=== PATIENT | female | born 1975 | race Caucasian/White ===

== ENCOUNTER 2016-09-20 21:31 | Emergency (ER) | payer MEDICAID ==
[~2016-09-20 21:31] MED LIST: DOCU-30 PO; FURO-93 PO; HYDR-3241 PO; METH-356 PO; OXYC-302 PO; POLY17PO5 PO; POTA10TA5 PO; SULF1TAB24 PO
[2016-09-20] MEDS ORDERED: DIPH,PERTUSS(ACELL),TET VAC/PF 0.5 ML IM-VACC ONE (23:01)
[2016-09-20] MEDS ORDERED: LIDOCAINE 1%, 20ML ONE (23:01)
== END 2016-09-20 23:45 ==
LOC: ED 21:31
DX: S90.852A Superficial foreign body, left foot, initial encounter (principal); X58.XXXA Exposure to other specified factors, initial encounter; Y93.89 Activity, other specified; Y99.8 Other external cause status; Y92.410 Unspecified street and highway as the place of occurrence of the external cause
CPT/HCPCS: 10120

== ENCOUNTER 2016-12-20 23:47 | Emergency (ER) | payer MEDICAID ==
[~2016-12-20] VITALS: Ht 167.6 cm; Wt 79.7 kg
[~2016-12-20 23:47] MED LIST changes: +DOCU-131 PO; -DOCU-30 PO
[2016-12-21] MEDS ORDERED: KETOROLAC 30 MG/1 ML ONE (00:45)
[2016-12-21] MEDS ORDERED: KETOROLAC 30 MG/1 ML IM ONE (01:00)
[2016-12-21 01:09] LABS: HEMATOCRIT 39.1 % (34.6-47.8); HEMOGLOBIN 12.9 g/dL (11.7-16.4); WHITE BLOOD COUNT 9.8 x10^3/uL (3.4-10)
[2016-12-21 01:20] LABS: BLOOD UREA NITROGEN 10 mg/dL (7-18)
[2016-12-21 01:24] LABS: IS PT STATUS REG ER OR PRE ER? YES
[2016-12-21] MEDS ORDERED: ONDANSETRON ODT 4 MG ONE (01:37)
[2016-12-21 01:39] VITALS: BP 124/80
[2016-12-21] MEDS ORDERED: ONDANSETRON ODT 4 MG PO ONE (02:00)
== END 2016-12-21 02:28 | disposition home or self-care (01) ==
LOC: ED 23:59
DX: R07.9 Chest pain, unspecified (principal); F17.200 Nicotine dependence, unspecified, uncomplicated; Z90.49 Acquired absence of other specified parts of digestive tract
CPT/HCPCS: 36415; 71010; 80048; 82040; 84484; 85025; 93005; 96372; 99285; J1885; Q0162

== ENCOUNTER 2017-07-06 21:21 | Emergency (ER) | payer MEDICAID ==
[~2017-07-06] VITALS: Ht 167.6 cm; Wt 75.0 kg
[2017-07-06 21:29] VITALS: BP 158/76
[2017-07-06] MEDS ORDERED: LIDOCAINE 1%, 20ML INFIL ONE (22:00)
[2017-07-06] MEDS ORDERED: LITH8SOL PO (22:27)
[2017-07-06] MEDS ORDERED: AMPH30TA2 PO (22:27)
[2017-07-06] MEDS ORDERED: QUET50TA5 PO (22:27)
[2017-07-06] MEDS ORDERED: LIDOCAINE-MPF 1%, 5ML INFIL ONE (22:30)
[2017-07-06 22:40] LABS: BASOPHILS # (AUTO) 0.05 x10^3/uL (0-0.1); BASOPHILS % (AUTO) 1 % (0-1); EOSINOPHILS # (AUTO) 0.43 x10^3/uL (0-0.4); EOSINOPHILS % (AUTO) 5 % (1-7); LYMPHOCYTES # (AUTO) 2.35 x10^3/uL (1-3.4); LYMPHOCYTES % (AUTO) 29 % (22-44); MD NO; MEAN CORPUSCULAR HEMOGLOBIN 30.5 pg (27.0-34.8); MEAN CORPUSCULAR HGB CONC 33.6 g/dL (32.4-35.8); MEAN CORPUSCULAR VOLUME 90.8 fL (80-100); MEAN PLATELET VOLUME 8.8 fL (7.4-10.4); MONOCYTES # (AUTO) 0.54 x10^3/uL (0.2-0.8); MONOCYTES % (AUTO) 7 % (2-9); NEUTROPHILS # (AUTO) 4.77 x10^3/uL (1.8-6.8); NEUTROPHILS % (AUTO) 59 % (42-75); PLATELET COUNT 229 x10^3/uL (130-400); RED BLOOD COUNT 4.86 x10^6/uL (3.82-5.3); RED CELL DISTRIBUTION WIDTH 15.7 % (9.6-15.2)
[2017-07-06 22:52] LABS: ALANINE AMINOTRANSFERASE 75 U/L (12-78); ALBUMIN 3.6 g/dL (3.4-5.0); ANION GAP 5 mmol/L (5-15); CALCIUM 8.2 mg/dL (8.5-10.1); CHLORIDE 111 mmol/L (98-107); CREATININE 0.83 mg/dL (0.55-1.02); SALICYLATE LEVEL 2.1 mg/dL (2.8-20.0)
[2017-07-06 22:57] LABS: ALKALINE PHOSPHATASE 112 U/L (45-117); BILIRUBIN,TOTAL 0.3 mg/dL (0.2-1.0); TOTAL PROTEIN 7.6 g/dL (6.4-8.2)
[2017-07-06 23:00] LABS: ACETAMINOPHEN < 2 mcg/mL (10-30)
[2017-07-07 01:27] LABS: AMPHETAMINE SCREEN, URINE Positive (Negative); BARBITURATE SCREEN, URINE Negative (Negative); BENZODIAZEPINE SCREEN, URINE Negative (Negative); CANNABINOID SCREEN, URINE Negative (Negative); COCAINE SCREEN, URINE Negative (Negative); METHADONE SCREEN, URINE Negative (Negative); OPIATE SCREEN, URINE Negative (Negative)
[2017-07-07] MEDS ORDERED: ONDANSETRON ODT 4 MG PO PRN (07:00)
[2017-07-07] MEDS ORDERED: LORazepam 1MG TABLET PO PRN (07:00)
[2017-07-07] MEDS ORDERED: NICOTINE 7 MG/24 HR PATCH.TD24 TD SCH (07:00)
[2017-07-07] MEDS ORDERED: LORazepam 2 MG/ML, 1ML IM PRN (07:00)
[2017-07-07] MEDS ORDERED: DOCUSATE 100 MG CAPSULE PO PRN (07:00)
[2017-07-07] MEDS ORDERED: LORazepam 1MG TABLET ONE (12:00)
== END 2017-07-07 13:30 | disposition home or self-care (01) ==
LOC: ED 23:59 → EDIP 07-07 05:36 → UNDOADMOB 07-07 05:36 → INTOOBSV 07-07 05:36 → ED 07-07 13:30
DX: S11.81XA Laceration without foreign body of other specified part of neck, initial encounter (principal); S61.511A Laceration without foreign body of right wrist, initial encounter; R45.851 Suicidal ideations; F32.1 Major depressive disorder, single episode, moderate; F20.9 Schizophrenia, unspecified; X78.9XXA Intentional self-harm by unspecified sharp object, initial encounter; Y93.89 Activity, other specified; Y92.89 Other specified places as the place of occurrence of the external cause; Y99.8 Other external cause status; Z91.14 Patient's other noncompliance with medication regimen
CPT/HCPCS: 12004; 36415; 80053; 80307; 80329; 84703; 85025; 99285; G0480

== ENCOUNTER 2018-01-03 23:17 | Emergency (ER) | payer MEDICAID ==
[~2018-01-03] VITALS: Ht 167.6 cm; Wt 83.6 kg
[~2018-01-03 23:17] MED LIST changes: +AMPH30TA2 PO; +LITH8SOL PO; +QUET50TA5 PO
[2018-01-03 23:19] VITALS: BP 144/78
[2018-01-03 23:46] LABS: BASOPHILS # (AUTO) 0.04 x10^3/uL (0-0.1); BASOPHILS % (AUTO) 0 % (0-1); EOSINOPHILS # (AUTO) 0.41 x10^3/uL (0-0.4); EOSINOPHILS % (AUTO) 4 % (1-7); LYMPHOCYTES # (AUTO) 2.25 x10^3/uL (1-3.4); LYMPHOCYTES % (AUTO) 21 % (22-44); MD NO; MEAN CORPUSCULAR HEMOGLOBIN 29.5 pg (27.0-34.8); MEAN CORPUSCULAR HGB CONC 32.6 g/dL (32.4-35.8); MEAN CORPUSCULAR VOLUME 90.4 fL (80-100); MEAN PLATELET VOLUME 8.5 fL (7.4-10.4); MONOCYTES # (AUTO) 0.75 x10^3/uL (0.2-0.8); MONOCYTES % (AUTO) 7 % (2-9); NEUTROPHILS % (AUTO) 68 % (42-75); PLATELET COUNT 225 x10^3/uL (130-400); RED BLOOD COUNT 4.33 x10^6/uL (3.82-5.3); RED CELL DISTRIBUTION WIDTH 15.2 % (9.6-15.2)
== END 2018-01-04 00:08 | disposition home or self-care (01) ==
LOC: ED 23:59
DX: L03.115 Cellulitis of right lower limb (principal); Z90.49 Acquired absence of other specified parts of digestive tract; F17.200 Nicotine dependence, unspecified, uncomplicated; F32.9 Major depressive disorder, single episode, unspecified
CPT/HCPCS: 36415; 85025; 99285

== ENCOUNTER 2018-01-28 16:22 | Emergency (ER) | payer MEDICAID ==
[~2018-01-28] VITALS: Ht 167.6 cm; Wt 85.7 kg
[2018-01-28 16:26] VITALS: BP 132/76
== END 2018-01-28 17:47 | disposition home or self-care (01) ==
LOC: ED 17:12
DX: L03.115 Cellulitis of right lower limb (principal); L03.116 Cellulitis of left lower limb; L21.9 Seborrheic dermatitis, unspecified; F17.210 Nicotine dependence, cigarettes, uncomplicated
CPT/HCPCS: 99283

== ENCOUNTER 2018-02-11 22:23 | Emergency (ER) | payer MEDICAID ==
[~2018-02-11] VITALS: Ht 167.6 cm; Wt 83.1 kg
[2018-02-11 22:28] VITALS: BP 143/84
[2018-02-11] MEDS ORDERED: ZOLP10TA PO (22:33)
== END 2018-02-11 23:21 | disposition home or self-care (01) ==
LOC: ED 23:15
DX: L40.0 Psoriasis vulgaris (principal); Z00.00 Encounter for general adult medical examination without abnormal findings; F17.210 Nicotine dependence, cigarettes, uncomplicated
CPT/HCPCS: 82962; 99283